=== PATIENT | male | born 1950 | race Caucasian/White ===

== ENCOUNTER 2021-11-21 20:04 | Emergency (ER) | payer MEDICARE, OTHER ==
[2021-11-21 20:55] LABS: HEMOGLOBIN 11.3 gm/dl (14.0-17.5); RED BLOOD COUNT 3.09 M/UL (4.20-5.50); WHITE BLOOD COUNT 6.2 K/UL (4.5-11.0)
[2021-11-21 21:15] LABS: BUN/CREATININE RATIO 15 (0-10)
[2021-11-22] MEDS ORDERED: COLACE 100MG C100 MG PO (01:31)
[2021-11-22] MEDS ORDERED: DULCOLAX5 MG PO (01:31)
== END 2021-11-22 01:52 | disposition home or self-care (01) ==
LOC: ER1 20:04
PROVIDERS: Student in an Organized Health Care Education/Training Program
DX: K59.00 Constipation, unspecified (principal); R10.33 Periumbilical pain; I48.91 Unspecified atrial fibrillation; I10 Essential (primary) hypertension; J44.9 Chronic obstructive pulmonary disease, unspecified; R35.89 Other polyuria; K76.0 Fatty (change of) liver, not elsewhere classified; Z90.49 Acquired absence of other specified parts of digestive tract
CPT/HCPCS: 80053; 81001; 83690; 85025; 87086; 99284; Q9967